=== PATIENT | female | born 1980 | race Caucasian/White ===

== ENCOUNTER 2022-03-17 12:19 | Emergency (ER) | payer MEDICAID ==
[~2022-03-17] VITALS: Ht 160 cm; Wt 59.0 kg
[2022-03-17 12:21] VITALS: BP_SYST 116
--- NOTE | 2022-03-17 12:28 | NUR ---
Patient to ER bed 8 to gown for evaluation. Side rails up. Report given to
[2022-03-17] MEDS ORDERED: NACL 0.9% 1,000 ML IV ONE (12:45)
[2022-03-17] MEDS ORDERED: levETIRAcetam 1,000 MG in NS 90 ML IV ONE (12:45)
[2022-03-17] MEDS ORDERED: ONDANSETRON HCL 4 MG/2 ML VIAL IVP ONE (12:45)
--- NOTE | 2022-03-17 12:45 | NUR ---
MD HUANG AT BEDSIDE.
[2022-03-17 13:06] LABS: BASOPHILS # (AUTO) 0.1 K/uL (0.0-0.2); BASOPHILS % (AUTO) 0.9 % (0.0-2.0); EOSINOPHILS # (AUTO) 0.1 K/uL (0.0-0.4); EOSINOPHILS % (AUTO) 1.8 % (0.0-4.0); HEMATOCRIT 38.2 % (36-48); HEMOGLOBIN 12.8 g/dL (12.0-16.0); LYMPHOCYTES # (AUTO) 1.7 K/uL (1.0-5.5); LYMPHOCYTES % (AUTO) 24.9 % (20.5-51.5); MEAN CORPUSCULAR HEMOGLOBIN 32 pg (27-31); MEAN CORPUSCULAR HGB CONC 34 % (32-36); MEAN CORPUSCULAR VOLUME 94 fL (79.0-98.0); MONOCYTES # (AUTO) 0.4 K/uL (0.0-1.0); MONOCYTES % (AUTO) 6.6 % (1.7-9.3); NEUTROPHILS # (AUTO) 4.5 K/uL (1.8-7.7); NEUTROPHILS % (AUTO) 65.8 % (40.0-70.0); PLATELET COUNT (AUTO) 269 K/uL (130-430); RED BLOOD CELL COUNT(AUTO) 4.05 MIL/uL (4.2-6.2); RED CELL DISTRIBUTION WIDTH 13.7 % (9.0-15.0); WHITE BLOOD COUNT (AUTO) 6.8 K/uL (4.8-10.8)
[2022-03-17 13:29] LABS: CALCIUM 8.7 mg/dL (8.4-11.0); CREATININE 0.85 mg/dL (0.55-1.30); POTASSIUM 3.4 mmol/L (3.5-5.1)
[2022-03-17 13:35] LABS: ALBUMIN 3.7 g/dL (3.4-4.8); TOTAL BILIRUBIN 0.2 mg/dL (0.0-1.0)
[2022-03-17] MEDS ORDERED: POTASSIUM CHLORIDE 20 MEQ TAB.PRT.SR PO ONE (14:00)
[2022-03-17] MEDS ORDERED: LEVE500T9 PO (14:52)
[2022-03-17] MEDS ORDERED: LEVO200C2 PO (15:58)
[2022-03-17] MEDS ORDERED: PRO20 PO (15:58)
[2022-03-17] MEDS ORDERED: ONDA-8 TL (15:59)
--- NOTE | 2022-03-17 16:07 | NUR ---
PT CONTINUES TO REST, BUT ALERT. IV FLUIDS INFUSING.
--- NOTE | 2022-03-17 17:33 | NUR ---
Patient given written and verbal discharge instructions and verbalizes understanding. ER MD discussed with patient the results and treatment provided. Patient in stable condition. ID arm band removed. IV catheter removed intact and dressing applied, no active bleeding. Rx of KEPPRA, PROZAC, ZOFRAN given. Patient educated on pain management and to follow up with PMD. Pain Scale 0/10. Opportunity for questions provided and answered. Medication side effect fact sheet provided.
[2022-03-17 17:34] VITALS: BP_SYST 120
== END 2022-03-17 17:33 | disposition home or self-care (01) ==
LOC: SED 12:19 → EDBD 12:19 → SED 17:33
DX: K52.9 Noninfective gastroenteritis and colitis, unspecified (principal); R56.9 Unspecified convulsions; Z79.899 Other long term (current) drug therapy
CPT/HCPCS: 36415; 80053; 81025; 83690; 85025; 96365; 99284; J1953; J2405